=== PATIENT | male | born 1945 | race Caucasian/White ===

== ENCOUNTER 2021-05-02 10:54 | Inpatient (IN) | payer MEDICAID, OTHER ==
[~2021-05-02] VITALS: Ht 165.1 cm; Wt 73.5 kg
[2021-05-02] MEDS ORDERED: IV NORMAL SALINE 500 ML BAG IV ONE ×2 (11:00→13:00)
[2021-05-02] MEDS ORDERED: NITR0.4T SL (11:21)
[2021-05-02] MEDS ORDERED: METH2.5T PO (11:21)
[2021-05-02] MEDS ORDERED: PRED2.5T PO (11:21)
[2021-05-02] MEDS ORDERED: INSU100I26 SQ (11:21)
[2021-05-02] MEDS ORDERED: METF-494 PO (11:21)
[2021-05-02] MEDS ORDERED: LOSA25TA27 PO (11:21)
[2021-05-02] MEDS ORDERED: AMIO200T5 PO (11:21)
[2021-05-02] MEDS ORDERED: FURO-151 PO (11:21)
[2021-05-02] MEDS ORDERED: FOLI1TAB94 PO (11:21)
[2021-05-02] MEDS ORDERED: APIX5TAB PO (11:21)
[2021-05-02] MEDS ORDERED: CLOP75TA15 PO (11:21)
[2021-05-02] MEDS ORDERED: ATOR80TA PO (11:21)
--- NOTE | 2021-05-02 11:32 | NUR ---
EKG done, labs drawn, IV fluids started. Pt responsive, A&Ox4, with no complaints of pain at this time. Aware he is waiting for results.
[2021-05-02 11:50] LABS: HEMATOCRIT 38.7 % (36.7-47.1); MEAN CORPUSCULAR HEMOGLOBIN 34.6 uug (23.8-33.4); MEAN CORPUSCULAR VOLUME 101.3 fL (73.0-96.2); PLATELET COUNT (AUTO) 148 K/uL (152-348)
[2021-05-02 11:57] LABS: *CLARITY,URINE CLEAR (CLEAR); *COLOR,URINE YELLOW (YELLOW); PH,URINE 6.5 (5.0-8.0)
[2021-05-02 11:58] LABS: *BILIRUBIN,URIN NEGATIVE (NEGATIVE); *BLOOD, URINE NEGATIVE (NEGATIVE); *KETONES,URINE NEGATIVE (NEGATIVE); LEUKOCYTE ESTERASE ,URINE NEGATIVE (NEGATIVE); NITRITE, URINE NEGATIVE (NEGATIVE); UGLUCOSE NEGATIVE (NEGATIVE)
[2021-05-02 11:59] LABS: CARBON DIOXIDE 26 mmol/L (21-32); CHLORIDE 101 mmol/L (98-107); GLUCOSE 127 mg/dL (74-106); POTASSIUM 3.6 mmol/L (3.5-5.1); UREA NITROGEN, BLOOD 32 mg/dL (7-18)
--- NOTE | 2021-05-02 12:03 | NUR ---
Pt continues to be A&Ox4, responsive and speaking in clear/complete sentences. [id number] at bedside.
[2021-05-02 12:12] LABS: ALANINE AMINOTRANSFERASE 180 U/L (16-63); ALKALINE PHOSPHATASE 124 U/L (50-136); ASPARTATE AMINOTRANSFERASE 265 U/L (15-37); BILIRUBIN,DIRECT 0.7 mg/dL (0.0-0.2); TOTAL PROTEIN, SERUM 6.5 g/dL (6.4-8.2)
--- NOTE | 2021-05-02 12:47 | NUR ---
Pt continues to be A&Ox4. In no acute distress at this time.
--- NOTE | 2021-05-02 12:58 | NUR ---
Dr. Pickens at bedside. [id number] no longer at bedside. Pt consents to being admitted.
[2021-05-02] MEDS ORDERED: ONDANSETRON 4 MG/2 ML VIAL IV PRN (13:15)
[2021-05-02] MEDS ORDERED: INSULIN REGULAR, HUMAN 300 UNITS/3 ML VIAL SQ PRN (13:15)
[2021-05-02] MEDS: BLOOD SUGAR DIAGNOSTIC 1 EACH STRIP VI SCH ×3 (13:15→21:14)
[2021-05-02] MEDS ORDERED: Z GUARD REMEDY PASTE 57 GM TUBE TOP PRN (13:15)
[2021-05-02] MEDS ORDERED: INSULIN REGULAR, HUMAN 300 UNIT/3 ML VIAL SQ PRN (13:15)
[2021-05-02] MEDS ORDERED: DEXTROSE 50% 50 ML DISP.SYRIN IV PRN (13:15)
[2021-05-02] MEDS ORDERED: ACETAMINOPHEN 325 MG TABLET PO PRN (13:15)
[2021-05-02] MEDS ORDERED: ATOR10TA PO (13:34)
[2021-05-02] MEDS ORDERED: METF-440 PO (13:36)
[2021-05-02] MEDS ORDERED: METO-356 PO (13:41)
[2021-05-02] MEDS ORDERED: CHOL200059 PO (13:44)
[2021-05-02 14:20] LABS: BACTERIA,URINE NONE SEEN /HPF (NONE SEEN); RBC,URINE 0-3 /HPF (0-3); SQUAMOUS EPITHELIAL CELL,UR NONE SEEN /HPF (NONE SEEN); WBC,URINE 0-3 /HPF (0-3)
--- NOTE | 2021-05-02 14:45 | NUR ---
ADMITTED FROM [facility]CTORS OFFICE VIA ER. A 75 YO M WITH AN ADMITTING DIAGNOSIS OF HYPERTENSION. ALERT AND ORIENTED X4. ASSISTED TO BED WITH HAND HOLD ASSIST. NOTED UNSTEADY GAIT. DENIES DIZZINESS. NO N/V UPON ARRIVAL ON THE FLOOR. PACING ON MONITOR. ROUTINE ADMISSION ASSESSMENT INITIATED. MD IS NOTIFIED ABOUT ADMISSION TO FLOOR.
--- NOTE | 2021-05-02 14:48 | NUR ---
ECHO DONE. AWAITING RESULTS.
--- NOTE | 2021-05-02 16:05 | NUR ---
1315 bs not done pt was still in er
[2021-05-02] MEDS: IV NS 1000 ML 1,000 ML IV PRN (16:10)
[2021-05-02] MEDS: METFORMIN HCL 500 MG TABLET PO SCH (16:18)
[2021-05-02] MEDS ORDERED: predniSONE 2.5 MG TABLET PO SCH (17:00)
--- NOTE | 2021-05-02 20:00 | NUR ---
Pt ambulated to bathroom. Pt needs min assistance secondary to pt has poor balance and weakness. Pt is in no acute distress. V pacing on tele. Skin intact. Call light is within reach.
[2021-05-02 20:42] VITALS: BP_SYST 105; BP_SYST 95; BP_DIAS 57
[2021-05-03 00:16] VITALS: BP 95/50
[2021-05-03 04:17] VITALS: BP 91/44
--- NOTE | 2021-05-03 05:59 | NUR ---
PT slept throughout night. VSS is in no acute distress. call light is within reach. IVF infusing as ordered.
[2021-05-03 06:43] LABS: HEMATOCRIT 32.8 % (36.7-47.1); MEAN CORPUSCULAR HEMOGLOBIN 34.8 uug (23.8-33.4); MEAN CORPUSCULAR VOLUME 100.2 fL (73.0-96.2); PLATELET COUNT (AUTO) 135 K/uL (152-348)
[2021-05-03] MEDS: BLOOD SUGAR DIAGNOSTIC 1 EACH STRIP VI SCH ×4 (06:43→21:07)
[2021-05-03 07:19] LABS: ALANINE AMINOTRANSFERASE 151 U/L (16-63); ALKALINE PHOSPHATASE 109 U/L (50-136); ASPARTATE AMINOTRANSFERASE 215 U/L (15-37); BILIRUBIN,TOTAL 1.4 mg/dL (0.2-1.0); CARBON DIOXIDE 28 mmol/L (21-32); CHLORIDE 105 mmol/L (98-107); CREATININE 1.5 mg/dL (0.6-1.3); GLUCOSE 78 mg/dL (74-106); MAGNESIUM 1.7 mg/dL (1.8-2.4); PHOSPHOROUS 3.4 mg/dL (2.5-4.9); POTASSIUM 3.7 mmol/L (3.5-5.1); TOTAL PROTEIN, SERUM 5.2 g/dL (6.4-8.2); UREA NITROGEN, BLOOD 27 mg/dL (7-18)
[2021-05-03 08:00] VITALS: BP 90/54
[2021-05-03] MEDS ORDERED: Medication Not On Formulary EA (Metformin Hcl (Metformin Hcl Er) 1 TAB) PO SCH (09:00)
[2021-05-03] MEDS: MAGNESIUM SULFATE/D5W 100 ML IV SCH ×2 (09:30→10:43)
[2021-05-03] MEDS: CLOPIDOGREL 75 MG TABLET PO SCH (09:30)
[2021-05-03] MEDS: predniSONE 2.5 MG TABLET PO SCH (09:30)
[2021-05-03] MEDS: AMIODARONE HCL 200 MG TABLET PO SCH (09:30)
[2021-05-03] MEDS: FOLIC ACID 1 MG TABLET PO SCH (09:31)
[2021-05-03] MEDS: METFORMIN HCL 500 MG TABLET PO SCH ×2 (09:31→16:36)
[2021-05-03 11:40] VITALS: BP 97/56
[2021-05-03 16:00] VITALS: BP 111/56
[2021-05-03 20:37] VITALS: BP 90/49
[2021-05-04] VITALS: BP 89/50
[2021-05-04] MEDS: IV NS 1000 ML 1,000 ML IV PRN (02:44)
[2021-05-04 04:57] VITALS: BP 80/43
[2021-05-04 05:52] VITALS: BP 110/64
[2021-05-04] MEDS: BLOOD SUGAR DIAGNOSTIC 1 EACH STRIP VI SCH ×3 (06:26→16:36)
[2021-05-04 07:47] LABS: MAGNESIUM 1.9 mg/dL (1.8-2.4); POTASSIUM 4.1 mmol/L (3.5-5.1)
[2021-05-04 08:00] VITALS: BP 105/56
[2021-05-04] MEDS: FOLIC ACID 1 MG TABLET PO SCH (08:45)
[2021-05-04] MEDS: AMIODARONE HCL 200 MG TABLET PO SCH (08:45)
[2021-05-04] MEDS: CLOPIDOGREL 75 MG TABLET PO SCH (08:45)
[2021-05-04] MEDS: METFORMIN HCL 500 MG TABLET PO SCH ×2 (08:45→16:12)
[2021-05-04] MEDS: predniSONE 2.5 MG TABLET PO SCH (08:45)
[2021-05-04 12:00] VITALS: BP 113/66
[2021-05-04] MEDS ORDERED: FURO20TA4 PO (15:21)
[2021-05-04 16:00] VITALS: BP 113/75
--- NOTE | 2021-05-04 18:15 | NUR ---
d/c to home with son and daughter in law. d/c instructions given regarding picking up prescriptions and taking b/p meds as ordered and taking b/p daily to ensure b/p is wnl prior to giving b/p meds. son and daughter verbalized understanding.
== END 2021-05-04 18:14 | disposition home or self-care (01) | DRG 640 ==
LOC: ER 10:54 → TELE-TD3 14:20 → MEDSURG3 05-04 13:25
PROVIDERS: ADMIT Internal Medicine; ATTEND Hospitalist
DX: E86.0 Dehydration (principal); N17.0 Acute kidney failure with tubular necrosis; I42.6 Alcoholic cardiomyopathy; I50.22 Chronic systolic (congestive) heart failure; D68.69 Other thrombophilia; I95.89 Other hypotension; E87.2 Acidosis; I11.0 Hypertensive heart disease with heart failure; E11.9 Type 2 diabetes mellitus without complications; E83.42 Hypomagnesemia; I25.10 Atherosclerotic heart disease of native coronary artery without angina pectoris; I48.91 Unspecified atrial fibrillation; Z95.5 Presence of coronary angioplasty implant and graft; Z95.810 Presence of automatic (implantable) cardiac defibrillator; R74.01 Elevation of levels of liver transaminase levels; T50.2X5A Adverse effect of carbonic-anhydrase inhibitors, benzothiadiazides and other diuretics, initial encounter; Y92.009 Unspecified place in unspecified non-institutional (private) residence as the place of occurrence of the external cause; K70.30 Alcoholic cirrhosis of liver without ascites; Z87.891 Personal history of nicotine dependence; Z79.84 Long term (current) use of oral hypoglycemic drugs; Z20.822 Contact with and (suspected) exposure to COVID-19; I35.8 Other nonrheumatic aortic valve disorders; Z79.01 Long term (current) use of anticoagulants; F10.20 Alcohol dependence, uncomplicated
CPT/HCPCS: 36415; 70030-TC; 71045; 83605; 83735; 84100; 84443; 85025; 85730; 87040; 87086; 93005; 93307; 97161; A4663; G0378; J1815; J3475; J7030; J7512